=== PATIENT | female | born 1990 | race Caucasian/White ===

== ENCOUNTER 2019-08-12 14:54 | Inpatient (IN) ==
[2019-08-12] MEDS ORDERED: PEPCID IV ONE (15:30)
[2019-08-12] MEDS ORDERED: NS 1,000 ML IV ONE ×2 (15:30→17:24)
[2019-08-12] MEDS ORDERED: SODIUM CHLORIDE 0.9% INJ ONE (15:30)
[2019-08-12] MEDS ORDERED: ZOFRAN IV ONE (15:30)
[2019-08-12] MEDS ORDERED: MORPHINE IV ONE ×2 (15:30→17:25)
[2019-08-12 16:09] LABS: BASO# 0.06 X1000 (0.0-0.2); BASO% 0.9 % (0.0-0.8); EOS# 0.06 X1000 (0.0-0.7); EOS% 0.9 % (0.0-10.0); HEMOGLOBIN 12.2 g/dL (12.0-16.0); IMM GRAN# 0.04 X1000 (0.0-0.04); IMM GRAN% 0.6 % (0.0-0.5); LYMPH# 1.47 X1000 (1.2-3.4); LYMPH% 22.5 % (20.5-51.1); MCH 27.2 PG (27-31); MCV 82.6 FL (81-99); MONO# 0.79 X1000 (0.11-0.59); MONO% 12.1 % (1.7-9.3); MPV 9.8 FL (7.4-10.4); NEUT# 4.12 X1000 (1.4-6.5); PLT 392 X1000 (130-400); RBC 4.48 XMIL (4.2-5.4); RDW 14.9 % (11.5-14.5); WBC 6.54 X1000 (4.8-10.8)
[2019-08-12 16:10] LABS: INR 1.21; PROTIME 15.5 Seconds (11.0-16.0); PTT 26.8 Seconds (22.3-41.8)
[2019-08-12 16:29] LABS: AGAP 13; ALB/GLOB RATIO 0.9; ALBUMIN 2.8 g/dL (3.5-5.0); ALKALINE PHOSPHATASE 329 U/L (32-104); AMYLASE 37 U/L (20-200); BUN 5 mg/dL (8-22); CALCIUM 7.9 mg/dL (8.8-10.2); CHLORIDE 99 mmol/L (98-107); COSMO 263; CREATININE 0.4 mg/dL (0.5-0.9); ESTIMATED GFR > 60; GLUCOSE 96 mg/dL (70-104); GOT 574 U/L (10-30); LIPASE 36 U/L (13-60); MAGNESIUM 1.8 mg/dL (1.5-2.7); POTASSIUM 3.8 mmol/L (3.5-5.1); SODIUM 133 mmol/L (136-145); TCO2 21 mmol/L (25-35); TOTAL PROTEIN 5.9 g/dL (6.3-8.3)
[2019-08-12 16:40] LABS: GPT 1511 U/L (10-36)
[2019-08-12 17:28] LABS: URINE SOURCE CLEAN CATCH
[2019-08-12 17:42] LABS: UR EPITHELIAL CELLS <10 /HPF (<10); URINE BACTERIA NEGATIVE /HPF; URINE RBC TNTC /HPF (<10); URINE WBC <10 /HPF (<10)
[2019-08-12 17:45] LABS: BILIRUBIN URINE MODERATE (NEGATIVE); BLOOD URINE LARGE (NEGATIVE); COLOR YELLOW; GLUCOSE URINE NEGATIVE (NEGATIVE); KETONE URINE TRACE mg/dL (NEGATIVE); LEUKOCYTES URINE SMALL (NEGATIVE); NITRITE URINE NEGATIVE (NEGATIVE); PROTEIN URINE 30 mg/dL (NEGATIVE); SP GRAVITY URINE 1.019; TURBIDITY URINE TURBID (CLEAR); UROBILINOGEN URINE NORMAL (NORMAL)
[2019-08-12 17:54] LABS: UR AMPHETAMINES QUAL NONE DETECTED (NONE DETECT); UR BARBITUATES QUAL NONE DETECTED (NONE DETECT); UR BENZODIAZEPIN QUAL NONE DETECTED (NONE DETECT); UR CANNABINOIDS QUAL PRESUMPTIVE POSITIVE (NONE DETECT); UR COCAINE QUAL NONE DETECTED (NONE DETECT); UR METHADONE QUAL NONE DETECTED (NONE DETECT); UR OPIATES QUAL PRESUMPTIVE POSITIVE (NONE DETECT); UR OXYCODONE QUAL NONE DETECTED (NONE DETECT); UR PCP QUAL NONE DETECTED (NONE DETECT)
[2019-08-12] MEDS ORDERED: ROCEPHIN 1 GM in NS 50 ML IV ONE (17:55)
--- NOTE | 2019-08-12 18:00 | PROVIDER DOCUMENTATION ---
This chart was entered by Terrie Armas Scribe, acting as scribe for Ángel Thompson MD. HPI-Abdominal Pain/GI Problem - General Chief Complaint: Diarrhea Stated Complaint: PT STATES "HEPATITIS A" PASSING BLOOD Time Seen by Provider: 08/12/19 15:23 Source: patient, family Allergies/Adverse Reactions: Patient Allergies Allergy/AdvReac Type Severity Reaction Status Date / Time No Known Allergies Allergy Verified 09/10/18 13:17 Home Medications: Home Medication List Medication Instructions Recorded Confirmed Last Taken Type Permethrin [Elimite] 60 gm TP DAILY #1 cream..g. 03/09/14 Unknown Rx Promethazine [Phenergan] 25 mg PO Q6H PRN PRN #20 tablet 03/09/14 Unknown Rx Sulfamethoxazole/Trimethoprim 1 each PO BID #20 tablet 03/09/14 Unknown Rx [Bactrim Ds Tablet] Tramadol [Ultram] 50 mg PO Q6H PRN PRN #20 tablet 03/09/14 Unknown Rx - History of Present Illness-ABD Nature of Presenting Problems: 29 yowf presents to the ed with SO with c/o fatigue, jesus and bloody diarrhea, RUQ pain, nausea and dark urine. pt sts SO 2 weeks prior got dx with Hep A and now she is showing all the same sx. pt admits to past drug use but sts none now. SO at bedside sts he feels much better now. Abdominal Pain Onset Location: reports: RUQ Pain Radiation: reports: no radiation Quality of Pain: reports: cramping Severity in ED: reports: moderate Onset/Duration: reports: other (2 weeks) Timing: reports: intermittent, getting worse Activities at Onset: reports: light activity Exposure to sick contacts?: Yes (SO had recent dx of Hep A) Modifying Factors: improves with: nothing Associated Symptoms: reports: diarrhea (jesus and bloody stool), fatigue, genitourinary problems, malaise, nausea, weakness. denies: back/neck pain, chest pain, shortness of breath, vomiting Last BM: this afternoon Dark Stools Present?: reports: other (jesus and bloody) Rectal Bleeding: reports: bloody diarrhea # of Diarrhea Episodes: 3 Rectal Pain: reports: none # of Vomiting Episodes: 0 Emesis Description: reports: none Bruising or Bleeding Gums?: No Similar Symptoms Previously?: No Recently seen or treated by another doctor?: No Review of Systems - Adult - REVIEW OF SYSTEMS - ADULT Constitutional: reports: see HPI, fatique. denies: chills, fever Eyes: reports: see HPI, other (scleral icterus) Ears, Nose, Mouth & Throat: reports: no symptoms reported Cardiovascular: denies: chest pain, palpitations Respiratory: denies: cough, shortness of breath, wheezing Gastrointestinal: reports: see HPI, abdominal pain, diarrhea, nausea, rectal bleeding. denies: vomiting Genitourinary: reports: see HPI, other (dark urine) Musculoskeletal: denies: back pain, neck pain Integumentary: reports: no symptoms reported Neurological: denies: dizziness/vertigo, headache/migraines Psychiatric: reports: no symptoms reported Endocrine: reports: no symptoms reported Hematologic/Lymphatic: reports: no symptoms reported Allergic/Immunologic: reports: no symptoms reported All Other Systems: Reviewed and Negative Past History - Adult - PAST MEDICAL HISTORY-ADULT Review of Records: reports: Old Records Reviewed, Nursing Assessment Review, Medications Reviewed, Social history reviewed & non-contributory. Major Childhood Illnesses: reports: denies history Cardiovascular: reports: denies history Respiratory: reports: denies history Gastrointestinal: reports: denies history Obstetrical/Gynecological: reports: denies history Genitourinary: reports: denies history Musculoskeletal: reports: denies history Neurological: reports: denies history Psychiatric: reports: denies history Endocrine/Immune: reports: denies history Other Conditions: reports: denies history - PRIOR SURGERIES/PROCEDURES Surgical/Procedure History: reports: none - PRIOR HOSPITALIZATIONS Prior Hospitalizations: reports: none - IMMUNIZATION STATUS Childhood Immunizations: See Nurse Assessment Flu Vaccine: See Nurse Assessment - FAMILY HISTORY Family History: reviewed, not pertinent - SOCIAL HISTORY Smoking: cigarettes, greater than 1 pack/day Provider spent 3-5 mins advising pt. on dangers of tobacco.: Discussed manners to quit use, and f/u contacts for add'l counseling. Substance Use: none presently/history of abuse (meth) Alcohol Use Frequency: never Living Situation: family Physical Exam-General - PHYSICAL EXAM-ADULT Initial Vital Signs Reviewed: Yes - CONSTITUTIONAL General Appearance: alert, mild distress, thin - EYES Eyes: PERRL/EOMI, scleral icterus - HEAD, EARS, NOSE, MOUTH & THROAT HENMT: moist mucous membranes - NECK Neck: non-tender, full range of motion, supple, normal inspection - RESPIRATORY Respiratory: chest non-tender, no respiratory distress, rhonchi (bilateral), wheezing (bilateral) - CARDIOVASCULAR Cardiovascular: normal peripheral pulses, tachycardia (112) - CHEST (BREASTS) Chest/Breast: deferred - GASTROINTESTINAL (ABDOMEN) Abdominal Exam: soft, guarding, tenderness (RUQ) - GENITOURINARY Female Genitalia/Pelvic Exam: deferred Rectal Exam: deferred Hemoccult Exam: deferred - LYMPHATIC Lymphatic: no adenopathy - MUSCULOSKELETAL Back Exam: normal inspection, no CVA tenderness, no vertebral tenderness, scoliosis Extremity: normal range of motion, non-tender, normal inspection, normal capillary refill - SKIN Integumentary: normal color, normal turgor, warm/dry - NEUROLOGIC Neurologic: grossly normal - PSYCHIATRIC Psych/Mental Status: normal mood/affect, normal thought content, normal thought process, oriented x 3 Progress - PLAN OF CARE/RESULTS Progress/Plan/Lab Results: Vital Signs - 8 hr 08/12/19 15:01 Temperature 98 F Pulse Rate 112 H Respiratory Rate 16 Blood Pressure 98/61 O2 Sat by Pulse Oximetry 97 Result Diagrams: 08/12/19 15:50 08/12/19 15:50 - REASSESSMENT Reassessment #1 Time Reassessed: 17:19 (pt sts she feels better after pain meds and fluids ) Status: improving Reassessment Comment: dr thompson at bedside - XRAY 1 XRAY: Bilateral XRAY Study: Abdomen Impression: See EMR Report (large amount of stool seen read by dr thompson) - CONSULTS/PCP/HOSPITALIST Notification #1 *Consult/PCP/Hospitalist*: hospitalist dr benitez Time Discussed: 17:57 (spoke with wero) Consult Disposition: Admit Departure - Departure Date of Disposition Decision: 08/12/19 Time of Disposition Decision: 17:28 DIAGNOSIS: Acute hepatitis A virus infection, Dehydration syndrome, Tobacco use disorder, Acute hemorrhagic cystitis RUQ abdominal tenderness Qualifiers: Presence of rebound: absent Qualified Code(s): R10.811 - Right upper quadrant abdominal tenderness Disposition: ADMITTED INPATIENT 09 Certified Medical Emergency: Emergent Condition: Stable Referrals and Follow-Ups: None,PCP [Primary Care Provider] - Discharge Education: Steps to Quit Smoking, [id number] - Critical Care Note This patient required my direct & personal management of CC.: No Attestation - Physician/ THOMAS Attestation Patient care was provided by Advanced Practice Provider:: No The physician spent face to face time with patient:: Yes Advanced Practice Provider documentation review:: Supervising physician onsite and consulted in the evaluation and care of this patient. The physician did have a face to face encounter with the patient. This chart was documented by the indicated scribe, (Terrie Armas Scribe) an d accurately reflects the services I performed and decisions made by me, Ángel Thompson MD, as attested by the provider's signature.
--- NOTE | 2019-08-12 18:05 | Diag Imaging Result Doc PS360 ---
EXAM: FLAT/UPRIGHT ABD/1 VIEW CHEST - 08/12/2019 HISTORY: abd pain, vomiting TECHNIQUE: Supine and upright abdomen and one view chest COMPARISON: 03/09/2014 chest two views FINDINGS: There is a moderate amount retained fecal debris in the colon and rectum suggesting constipation. Bowel gas pattern otherwise appears nonspecific. There are a few air-fluid levels on the upright view, there is no substantial gaseous bowel distention identified. There is no free air identified. Upright chest shows normal heart size. Lungs appear clear. No pleural effusion or pneumothorax identified. Mild thoracic scoliosis noted. IMPRESSION: Evidence of constipation. Nonspecific bowel gas pattern otherwise. No evidence of acute cardiopulmonary disease. Electronically signed by Jamar Betancourt 08/12/2019 6:02 PM
[2019-08-12] MEDS ORDERED: SODIUM CHLORIDE 0.9% INJ SCH (18:45)
--- NOTE | 2019-08-12 19:49 | Diag Imaging Result Doc PS360 ---
EXAM: US GB < RUQ (LIMITED) - 08/12/2019 HISTORY: elevated liver enzymes TECHNIQUE: Ultrasound gallbladder COMPARISON: None. FINDINGS: The gallbladder coleman are thickened up to approximately 1.5 cm. There are no discrete gallstones identified. There is a small amount of perihepatic free fluid. The technologist reports positive sonographic Sanders's sign. The common bile duct is normal caliber at 3 mm. Visualized portions of the pancreas are unremarkable. There are no discrete abnormalities of the liver identified. Doppler image shows hepatopedal flow in the portal vein. The right kidney is unremarkable. IMPRESSION: Substantially thickened gallbladder coleman. The possibility of cholecystitis or gallbladder malignancy cannot be excluded. No discrete gallstones. Normal caliber common bile duct at 3 mm. Electronically signed by Jamar Betancourt 08/12/2019 7:47 PM
[2019-08-12] MEDS: PROTONIX IV SCH (20:03)
[2019-08-13 01:27] LABS: HEMATOCRIT 34.2 % (37.0-47.0); HEMOGLOBIN 11.1 g/dL (12.0-16.0)
[2019-08-13] MEDS: NS 1,000 ML IV SCH ×5 (04:45→20:26)
[2019-08-13] MEDS: ZOFRAN IV PRN ×2 (04:46→13:13)
[2019-08-13] MEDS: MORPHINE IV PRN ×3 (04:46→20:25)
[2019-08-13 06:12] LABS: BASO# 0.03 X1000 (0.0-0.2); BASO% 0.6 % (0.0-0.8); EOS# 0.06 X1000 (0.0-0.7); EOS% 1.2 % (0.0-10.0); IMM GRAN# 0.03 X1000 (0.0-0.04); IMM GRAN% 0.6 % (0.0-0.5); INR 1.32; LYMPH% 25.4 % (20.5-51.1); MCHC 32.4 g/dL (33-37); MCV 83.3 FL (81-99); MONO# 0.59 X1000 (0.11-0.59); MONO% 11.5 % (1.7-9.3); NEUT# 3.11 X1000 (1.4-6.5); NEUT% 60.7 % (42.2-75.2); PLT 394 X1000 (130-400); PROTIME 16.6 Seconds (11.0-16.0); RBC 4.08 XMIL (4.2-5.4); WBC 5.12 X1000 (4.8-10.8)
[2019-08-13 06:31] LABS: AGAP 11; ALB/GLOB RATIO 0.9; ALBUMIN 2.5 g/dL (3.5-5.0); ALKALINE PHOSPHATASE 292 U/L (32-104); BUN 6 mg/dL (8-22); CALCIUM 7.4 mg/dL (8.8-10.2); CHLORIDE 101 mmol/L (98-107); COSMO 261; CREATININE 0.5 mg/dL (0.5-0.9); ESTIMATED GFR > 60; GLUCOSE 85 mg/dL (70-104); GOT 498 U/L (10-30); POTASSIUM 3.6 mmol/L (3.5-5.1); SODIUM 132 mmol/L (136-145); TCO2 20 mmol/L (25-35); TOTAL BILIRUBIN 4.58 mg/dL (0.20-1.00); TOTAL PROTEIN 5.3 g/dL (6.3-8.3)
[2019-08-13 06:45] LABS: GPT 1111 U/L (10-36)
--- NOTE | 2019-08-13 06:56 | HISTORY AND PHYSICAL ---
CHIEF COMPLAINT: Nausea, vomiting, diarrhea, and bloody diarrhea. HISTORY OF PRESENT ILLNESS: This is a 29-year-old female, she really has no medical problems. She was passing blood per rectum. She is in a relationship where her boyfriend apparently had hepatitis about 2 weeks ago. She came in, she is jaundiced. She has had nausea and vomiting. There has not been a description that she has passed blood. She has not had a Hemoccult here, I guess, but in any case it looks like she has acute hepatitis, most likely A since her boyfriend had it recently. Initially, it was kind of a URI type syndrome and then it had further progression and now she has had nausea, vomiting, bloody diarrhea for the last several days. Jaundice has been in the last 24 hours. Her workup in the ER showed an AST and ALT of 574 and 1511, low albumin. INR is not too bad. Hemoglobin and hematocrit is stable. She will be admitted for treatment of her acute hepatitis, presumably A. PAST MEDICAL HISTORY: Denies. PAST SURGICAL HISTORY: Denies. FAMILY HISTORY: Reviewed and noncontributory. SOCIAL HISTORY: She does smoke, she has done that for about 16 years, about half a pack a day. No breathing problems. Denies alcohol. Denies drugs. ALLERGIES: No known drug allergies. MEDICATIONS: No long-term medications. REVIEW OF SYSTEMS: Otherwise negative times a 10 point review of system. PHYSICAL EXAMINATION: VITALS: Blood pressure 98/61, heart rate of 112, respiratory rate of 16, temperature 98 degrees. GENERAL: A well-developed female, who appears in no distress, but is uncomfortable. HEENT: Sclerae are jaundiced, icteric, but eyes are equal, round, and reactive to light. Ear, nose and throat examination, she had moist mucous membranes. NECK: Supple. CARDIOVASCULAR: Regular rate and rhythm. No murmurs, gallops, or rubs. PULMONARY: Bilateral breath sounds. Clear to auscultation. GI: Soft, nontender, nondistended. Bowel sounds are positive. She had some tenderness in her right upper quadrant. NEUROLOGIC: Nonfocal. LABORATORY: She had a white count of 6, hemoglobin and hematocrit 12 and 37. AST and ALT of 574, with T bilirubin of 4.5, 4 of which is direct, consistent with an intrahepatic cause, almost consistent with an acute hepatitis. PROBLEM: 1. Acute hepatitis, presumably hepatitis A. We will continue to monitor, hydration, supportive care. I will get a GI consult just because of the amount of elevation. We will get a right upper quadrant ultrasound. We will get a Tylenol level. She has been using Tylenol, maybe 500 or 1 g a day. Denies alcohol use. In any case, the patient is ready and we will continue to monitor. Hepatitis panel has already been assayed. 2. Lower gastrointestinal bleed. This could simply be related to the hepatitis itself and mild coagulopathy. We will monitor her hemoglobin and hematocrit, start Protonix, and follow accordingly. If this persists, she may need endoscopy. That will be at the discretion of GI, who has been consulted. DISPOSITION: Home when liver enzymes are better and she is out of the acute phase. cc: Adolph Cuello MD
[2019-08-13 13:56] LABS: HEMATOCRIT 35.3 % (37.0-47.0); HEMOGLOBIN 11.5 g/dL (12.0-16.0)
[2019-08-13 14:54] LABS: HEPATITIS PROFILE ACUTE SEE COMMENTS
[2019-08-13] MEDS ORDERED: PROTONIX IV SCH (18:45)
[2019-08-13] MEDS ORDERED: NS 1,000 ML IV ONE (18:45)
[2019-08-13] MEDS: SODIUM CHLORIDE 0.9% INJ SCH (20:24)
--- NOTE | 2019-08-13 22:20 | PROGRESS NOTE ---
DATE: 08/13/2019 SUBJECTIVE: The patient has no major complaints. She does not feel any better. Still nausea, vomiting, still bloody bowel movements. OBJECTIVE: Blood pressure is 86/52, heart rate of 99, respiratory rate 18, temperature 98 degrees.Cardiovascular: Regular rate and rhythm. Pulmonary: Bilateral breath sounds. Clear to auscultation. Gastrointestinal: Soft, nontender, nondistended. Bowel sounds are positive. LABORATORY DATA: Her white count is 5, hemoglobin and hematocrit 11 and 35, platelets 394,000. INR is 1.32. Her T-bilirubin is still high 4.58, AST is 498, ALT is 1111, albumin of 2.5. PROBLEM LIST: 1. Acute hepatitis. It looks like she has hepatitis A and C, and she has acute hepatitis A, but she may have concurrent hepatitis C. In any case, we will continue hydration and see how she does. 2. Bloody diarrhea. It may just be related to the hepatitis. We will continue to follow. 3. History of polysubstance abuse. She does have a history of IV drug use, which makes the hepatitis C question a possibility, so she may need testing from that standpoint. We will continue to monitor and she will need follow up. cc: Adolph Cuello MD
[2019-08-13] MEDS: PROTONIX IV SCH (22:35)
[2019-08-14] MEDS: NS 1,000 ML IV SCH ×3 (03:17→17:07)
--- NOTE | 2019-08-14 06:09 | GASTROENTEROLOGY CONSULTATION ---
DATE: 08/13/2019 CONSULTING PHYSICIAN: Dr. Cuello REASON FOR CONSULTATION: Hepatitis. HISTORY: This is 29-year-old white female with no history of major medical problems. She is an IV drug abuser. She tells me she has been clean for the past 2 weeks or so. She also informs me that her boyfriend was recently diagnosed and treated for acute hepatitis A. She herself has been sick for the past couple of weeks. It all started with generalized body ache and respiratory symptoms. She then started having some abdominal discomfort, nausea, and vomiting. She also had multiple loose bowel movements yesterday. She had some bright red blood on the wipes. With these complaints, she came to the emergency room where she was evaluated, and was found to have significantly elevated transaminases. She was admitted for further evaluation and treatment. PAST MEDICAL HISTORY: Nothing significant. PAST SURGICAL HISTORY: None. MEDICATIONS: She tells me she has taken a few Tylenol's but she does not remember how many. ALLERGIES: No drug allergies. SOCIAL HISTORY: She is single. Currently, she has gotten back with her boyfriend which she has been with him off and on. FAMILY HISTORY: Noncontributory. REVIEW OF SYSTEMS: As per HPI as above. PHYSICAL EXAMINATION: General: A very pleasant white female. She is resting in bed. She is conscious, alert, and appears to be in no distress. Vital Signs: Temperature 99.4, pulse 103 per minute, respirations 14, and blood pressure 110/63. HEENT: Head is atraumatic, normocephalic. Eyes: Conjunctivae is normal. Sclerae mildly icteric. Nares are patent. No discharge noted. Mouth: Buccal mucosa is moist. Throat is normal. Neck: Neck is supple. No lymphadenopathy or thyromegaly. Chest: Bilaterally symmetrical. It is moving with respirations. Breath sounds audible bilaterally. No rhonchi or crepitations could be heard. Heart: Audible. No murmur could be appreciated. Abdomen: Flat and soft, mildly tender in right upper quadrant area. No rebound tenderness. No guarding noted. Bowel sounds are audible. Extremities: No pedal edema, cyanosis, or clubbing was noted. THERAPEUTIC DIETITIAN: Grossly intact. No sensory or motor deficit. LABORATORY: Reviewed which showed WBC of 5.12, hemoglobin 11.5, hematocrit 35.3, MCV 83.3, and platelets were 394,000. PT 16.6. INR 1.22. Sodium 132, potassium 3.6, chloride 101, bicarb 20, BUN is 6, and creatinine 0.5. AST was 498 which on admission was 574. ALT was 1111 which on admission was 1511. Alkaline phosphatase 292, total bilirubin was 4.58. Albumin 2.5. Total protein was 5.3. Urinalysis positive for some ketones in blood, and small amount of leukocytes noted possibly UTI. IMPRESSION: Acute hepatitis most likely viral. She has history of IV drug abuse, and her boyfriend had some sort of hepatitis most likely hepatitis A and maybe B, but she is concerned that she may have underlying hepatitis C. During my history and physical, we are still waiting for her hepatitis profile to be back. At this point, I would continue current hemodynamics resuscitation, hydration, and recheck labs to replace electrolytes. Replenish electrolytes, and keep her stable. Follow up I Os. Also, I need to repeat her labs tomorrow with the transaminases. More importantly, we need to follow her albumin and PT/INR to confirm that she is not going towards acute liver failure or fulminant hepatitis. Depending on her progress, further plans will be made. She was advised to abstain from IV drug abuse as well as alcohol. cc: Missael Agustin MD [facility]
[2019-08-14 07:39] LABS: BASO# 0.09 X1000 (0.0-0.2); BASO% 1.9 % (0.0-0.8); EOS# 0.03 X1000 (0.0-0.7); EOS% 0.6 % (0.0-10.0); HEMATOCRIT 33.2 % (37.0-47.0); HEMOGLOBIN 10.7 g/dL (12.0-16.0); IMM GRAN# 0.04 X1000 (0.0-0.04); IMM GRAN% 0.9 % (0.0-0.5); LYMPH# 1.37 X1000 (1.2-3.4); LYMPH% 29.3 % (20.5-51.1); MCH 26.8 PG (27-31); MCHC 32.2 g/dL (33-37); MCV 83.2 FL (81-99); MONO# 0.74 X1000 (0.11-0.59); MONO% 15.8 % (1.7-9.3); MPV 9.4 FL (7.4-10.4); NEUT# 2.41 X1000 (1.4-6.5); NEUT% 51.5 % (42.2-75.2); PLT 381 X1000 (130-400); RBC 3.99 XMIL (4.2-5.4); RDW 15.3 % (11.5-14.5); WBC 4.68 X1000 (4.8-10.8)
[2019-08-14] MEDS: MORPHINE IV PRN ×3 (07:52→21:08)
[2019-08-14 07:53] LABS: AGAP 9; ALBUMIN 2.3 g/dL (3.5-5.0); ALKALINE PHOSPHATASE 298 U/L (32-104); BUN 3 mg/dL (8-22); CALCIUM 7.3 mg/dL (8.8-10.2); CHLORIDE 103 mmol/L (98-107); COSMO 265; CREATININE 0.4 mg/dL (0.5-0.9); ESTIMATED GFR > 60; GLUCOSE 129 mg/dL (70-104); GOT 234 U/L (10-30); POTASSIUM 3.3 mmol/L (3.5-5.1); SODIUM 133 mmol/L (136-145); TCO2 21 mmol/L (25-35); TOTAL BILIRUBIN 4.95 mg/dL (0.20-1.00); TOTAL PROTEIN 4.7 g/dL (6.3-8.3)
[2019-08-14 08:10] LABS: GPT 743 U/L (10-36)
[2019-08-14 08:18] LABS: BANDS 2 % (0-1); LYMPHS 24 % (21-51); MONO 8 % (1-9); SEGS 60 % (42-75)
[2019-08-14] MEDS: ZOFRAN IV PRN (16:39)
[2019-08-14] MEDS: SODIUM CHLORIDE 0.9% INJ SCH (20:10)
[2019-08-14] MEDS: PROTONIX IV SCH (20:10)
--- NOTE | 2019-08-14 23:18 | GASTROENTEROLOGY PROGRESS NOTE ---
DATE: 08/14/2019 SUBJECTIVE: Patient states she is feeling a little better. No reported nausea or vomiting. No reported rectal bleeding. She had a documented liquid brown stool today. OBJECTIVE: Vital Signs: Temperature 99.1 degrees, pulse 99, respirations 18, blood pressure 105/69. General: Patient is awake, alert in no acute distress. Respiratory: Lung sounds clear. Abdomen: Soft. Some tenderness with palpation. Otherwise, positive bowel sounds. LABORATORY DATA: Hematology: WBC 4.68, hemoglobin 10.7, hematocrit 33.2, MCV 83.2, platelets 381,000. Coagulation on 08/13/2019: Protime 16.6, INR 1.32. Chemistry: Sodium 133, potassium 3.3, chloride 103, CO2 21, BUN 3, creatinine 0.4, glucose 129, total bilirubin 4.95, direct bilirubin 4.50, AST 234, ALT 743, alkaline phosphatase 298. Hepatitis profile was reactive for hepatitis C and a hepatitis A viral antibody IgM. ASSESSMENT AND PLAN: 1. Acute hepatitis. Patient's liver function tests have improved some. Continue symptomatic treatment and supportive care. 2. Hepatitis C. HCV viral load pending. We will get hepatitis C genotype. 3. Rectal bleeding has resolved today. She continues to have some diarrhea. 4. Polysubstance abuse. Patient has been counseled on alcohol cessation and drug use cessation. We will continue to follow during her hospital course. Repeat labs tomorrow. Continue current medications. Once she is discharged, recommend she follow up with us in the office about plans for hepatitis C treatment once she has been clean from IV drug use for an appropriate amount of time. She will require patient assistance. That can be set up as an outpatient. I have discussed this case with Dr. Agustin. We will continue to follow during our hospital course and follow up with her in the office after discharge. Patient voices understanding of this plan. Dictated by JULIO CESAR Villeda for Missael Agustin MD cc: JULIO CESAR Sarkar MD
[2019-08-15] MEDS: NS 1,000 ML IV SCH ×3 (00:58→18:39)
[2019-08-15] MEDS: MORPHINE IV PRN ×5 (04:27→23:30)
[2019-08-15 06:52] LABS: BASO# 0.16 X1000 (0.0-0.2); BASO% 2.8 % (0.0-0.8); EOS# 0.06 X1000 (0.0-0.7); HEMATOCRIT 31.1 % (37.0-47.0); HEMOGLOBIN 10.3 g/dL (12.0-16.0); IMM GRAN# 0.05 X1000 (0.0-0.04); IMM GRAN% 0.9 % (0.0-0.5); LYMPH# 2.43 X1000 (1.2-3.4); LYMPH% 42.4 % (20.5-51.1); MCH 27.3 PG (27-31); MCHC 33.1 g/dL (33-37); MCV 82.5 FL (81-99); MONO# 0.73 X1000 (0.11-0.59); MONO% 12.7 % (1.7-9.3); NEUT% 40.2 % (42.2-75.2); PLT 394 X1000 (130-400); RBC 3.77 XMIL (4.2-5.4); RDW 15.5 % (11.5-14.5); WBC 5.73 X1000 (4.8-10.8)
[2019-08-15 07:06] LABS: AGAP 11; ALB/GLOB RATIO 0.8; ALBUMIN 2.2 g/dL (3.5-5.0); ALKALINE PHOSPHATASE 296 U/L (32-104); BUN 2 mg/dL (8-22); CALCIUM 7.6 mg/dL (8.8-10.2); CHLORIDE 103 mmol/L (98-107); COSMO 268; CREATININE 0.4 mg/dL (0.5-0.9); ESTIMATED GFR > 60; GLUCOSE 94 mg/dL (70-104); GOT 117 U/L (10-30); GPT 523 U/L (10-36); POTASSIUM 3.5 mmol/L (3.5-5.1); SODIUM 136 mmol/L (136-145); TCO2 22 mmol/L (25-35); TOTAL BILIRUBIN 4.82 mg/dL (0.20-1.00); TOTAL PROTEIN 4.9 g/dL (6.3-8.3)
[2019-08-15 08:07] LABS: BANDS 2 % (0-1); HYPOCHROM 1+; LYMPHS 36 % (21-51); MONO 10 % (1-9); SEGS 44 % (42-75)
[2019-08-15 08:09] LABS: INR 1.26
[2019-08-15] MEDS ORDERED: MOTRIN PO PRN (10:05)
[2019-08-15] MEDS: ZOFRAN IV PRN ×4 (10:10→23:30)
--- NOTE | 2019-08-15 10:33 | Diag Imaging Result Doc PS360 ---
EXAM: CHEST-2 VIEWS INDICATION: hypoxia TECHNIQUE: 2 views COMPARISON: 08/12/2019 FINDINGS: There are vague linear densities at the right lower lung zone and, to a lesser degree, at the left lower lung zone suggesting mild subsegmental atelectasis. There is mild blunting of the left costophrenic angle suggesting a possible trace effusion. There is no evidence of pneumothorax. The cardiomediastinal silhouette and central vasculature are grossly unremarkable. IMPRESSION: Linear densities at the lower lung zone suggesting subsegmental atelectasis and a possible trace left effusion. Electronically signed by Don Rodriguez 08/15/2019 10:30 AM
[2019-08-15 10:55] LABS: URINE SOURCE CLEAN CATCH
[2019-08-15 11:07] LABS: BILIRUBIN URINE MODERATE (NEGATIVE); BLOOD URINE SMALL (NEGATIVE); COLOR YELLOW; GLUCOSE URINE NEGATIVE (NEGATIVE); KETONE URINE NEGATIVE (NEGATIVE); LEUKOCYTES URINE NEGATIVE (NEGATIVE); NITRITE URINE NEGATIVE (NEGATIVE); PH URINE 6.5; PROTEIN URINE NEGATIVE (NEGATIVE); SP GRAVITY URINE 1.013; TURBIDITY URINE HAZY (CLEAR); UROBILINOGEN URINE NORMAL (NORMAL)
[2019-08-15 11:16] LABS: UR EPITHELIAL CELLS <10 /HPF (<10); URINE BACTERIA NEGATIVE /HPF; URINE RBC <10 /HPF (<10); URINE WBC <10 /HPF (<10)
[2019-08-15 11:41] LABS: URINE CRYSTALS NONE SEEN
--- NOTE | 2019-08-15 21:40 | GASTROENTEROLOGY PROGRESS NOTE ---
DATE: 08/15/2019 SUBJECTIVE: The patient is resting comfortably. She has been feeling better now. She denies any GI symptoms. She has been able to tolerate her diet well. She denies nausea or vomiting. She has not had any diarrhea. OBJECTIVE: Vitals: Temperature is 99.3 degrees, pulse 97 per minute. Breathing at a rate of 18, blood pressure 107/65. The abdomen is full, soft, nontender. Bowel sounds are audible. No pedal edema noted. LABORATORIES: Reviewed which showed her AST down to 117, ALT 523. Bilirubin is 4.82. IMPRESSION: Acute hepatitis A with underlying chronic hepatitis C. Patient is improving well at this point. No new suggestions. Advised her to continue low fat diet and hydrate herself well. From a GI perspective, she can be discharged as she does not show any signs of liver failure now. Her INR has improved and the albumin level is holding. Recommended her to follow up with me in the office. She will be treated with a direct antiviral for her hepatitis C. I answered all the pertinent questions. cc: Missael Agustin MD MTDD
--- NOTE | 2019-08-15 23:46 | PROGRESS NOTE ---
DATE: 08/15/2019 SUBJECTIVE: Patient has no major complaints. OBJECTIVE: Vital signs: Blood pressure is 97/63, heart rate 96, respiratory rate 18, temperature 100.6 degrees. Cardiovascular: Regular rate and rhythm. Pulmonary: Bilateral breath sounds. Clear to auscultation. Gastrointestinal: Soft, nontender, nondistended. Bowel sounds are positive. LABS: White count is 5, hemoglobin and hematocrit 10 and 31, platelets 394,000. Basic was normal. AST and ALT are down to 111 and 523. PROBLEM LIST: 1. Acute hepatitis with possible chronic hepatitis C. We will continue supportive care. She seems to be doing okay. 2. Fevers of unknown origin. She is starting to get little atelectasis, so we will work on ambulation and incentive spirometry. 3. Bloody diarrhea. Her hemoglobin and hematocrit has been stable. May do some stool studies just to kind of see if there is anything that could be there concurrently. This is most likely related to the hepatitis A. DISPOSITION: I think once her liver enzymes are improved and her fevers have abated, then she should be able to go home. Hopefully, that will be in the next 24 hours. cc: Adolph Cuello MD
[2019-08-16] MEDS: NS 1,000 ML IV SCH ×2 (05:31→13:37)
[2019-08-16] MEDS: PRILOSEC PO SCH ×2 (05:31→06:46)
[2019-08-16 07:44] LABS: BASO# 0.09 X1000 (0.0-0.2); BASO% 1.7 % (0.0-0.8); EOS# 0.04 X1000 (0.0-0.7); EOS% 0.7 % (0.0-10.0); HEMATOCRIT 32.7 % (37.0-47.0); HEMOGLOBIN 10.6 g/dL (12.0-16.0); IMM GRAN# 0.04 X1000 (0.0-0.04); IMM GRAN% 0.7 % (0.0-0.5); LYMPH% 44.6 % (20.5-51.1); MCH 26.6 PG (27-31); MCHC 32.4 g/dL (33-37); MCV 82.2 FL (81-99); MONO% 11.2 % (1.7-9.3); NEUT# 2.21 X1000 (1.4-6.5); NEUT% 41.1 % (42.2-75.2); PLT 365 X1000 (130-400); RBC 3.98 XMIL (4.2-5.4); RDW 15.9 % (11.5-14.5); WBC 5.38 X1000 (4.8-10.8)
[2019-08-16 07:55] LABS: AGAP 9; ALB/GLOB RATIO 0.9; ALBUMIN 2.5 g/dL (3.5-5.0); ALKALINE PHOSPHATASE 297 U/L (32-104); BUN 4 mg/dL (8-22); CALCIUM 7.8 mg/dL (8.8-10.2); CHLORIDE 105 mmol/L (98-107); COSMO 273; CREATININE 0.4 mg/dL (0.5-0.9); ESTIMATED GFR > 60; GLUCOSE 112 mg/dL (70-104); GOT 80 U/L (10-30); GPT 403 U/L (10-36); POTASSIUM 3.5 mmol/L (3.5-5.1); SODIUM 138 mmol/L (136-145); TCO2 24 mmol/L (25-35); TOTAL BILIRUBIN 5.12 mg/dL (0.20-1.00); TOTAL PROTEIN 5.3 g/dL (6.3-8.3)
[2019-08-16 11:15] VITALS: BP 103/63
[2019-08-16] MEDS: MORPHINE IV PRN (13:36)
[2019-08-16] MEDS: ZOFRAN IV PRN (13:36)
--- NOTE | 2019-08-16 21:43 | GASTROENTEROLOGY PROGRESS NOTE ---
DATE: 08/16/2019 SUBJECTIVE: Patient states she is feeling some better. She still has some loose stools. OBJECTIVE: Vital Signs: Temperature 98.1 degrees, pulse 97, respirations 18, blood pressure 103/63. General: Patient is awake, alert, no acute distress. LABORATORY: Hematology. WBC 5.38, hemoglobin 10.6, hematocrit 32.7, MCV 82.2, platelets 365,000. Chemistry. Sodium 138, potassium 3.5, chloride 105, CO2 24, BUN 4, creatinine 0.4, glucose 112, total bilirubin 5.12, AST 80, ALT 403, alkaline phosphatase 297. ASSESSMENT AND PLAN: 1. Acute hepatitis A and chronic hepatitis C. Continue current management and supportive care. I believe she may have discharge orders for today. 2. Bloody diarrhea is improving. No more rectal bleeding but patient is still having some soft stools. Stool for Clostridium difficile was negative. Continue symptomatic treatment, supportive care. I believe patient has discharge orders. Recommend she follow a bland diet, drink plenty of fluids and rest. Recommend she follow up with us in the office after discharge. I have given her contact information to call and make an appointment. Further plan to be made according to her progress. I have discussed this case with Dr. Agustin. Dictated by JULIO CESAR Villeda for Missael Agustin MD cc: JULIO CESAR Sarkar MD
--- NOTE | 2019-08-16 22:23 | DISCHARGE SUMMARY ---
ADMISSION DATE: 08/12/2019 DISCHARGE DATE: 08/16/2019 PRIMARY CARE PHYSICIAN: None. ADMISSION DIAGNOSES: 1. Acute hepatitis, presumably hepatitis A. 2. A lower gastrointestinal bleed that could simply be related to the hepatitis itself or a mild coagulopathy. DISCHARGE DIAGNOSES: 1. Acute hepatitis with possible chronic hepatitis C, improved. 2. Fevers of unknown origin with no fevers in the last 24 hours. 3. Bloody diarrhea, improved. SUMMARY OF FINDINGS: This is a 29-year-old female who has been passing blood in her rectum. She is in a relationship with her boyfriend apparently that had hepatitis about 2 weeks ago. She came in because she was becoming jaundiced, nausea, vomiting and passing blood through her stool, appeared that she had a acute hepatitis A most likely A since her boyfriend recently had it. We monitored her liver enzymes. We did a Gastroenterology consultation. Abdomen ultrasound showed substantially thickened gallbladder co[place], the possibility of cholecystitis or gallbladder malignancy could not be excluded. GI felt she had an acute hepatitis A with an underlying chronic hepatitis C that she was improving and could continue her low-fat diet, keep herself hydrated. Did not show any signs of liver failure at this point and it was recommended that she follow up with GI at discharge so we will discharge her home today. DISCHARGE MEDICATIONS: Will include Phenergan 25 mg p.o. q.6 hours p.r.n. FOLLOWUP: She will follow up with Dr. Agustin. Call their office for an appointment TIME SPENT: 35 minutes. Dictated by JULIO CESAR Smith for Adolph Cuello MD cc: MD Adolph Adhikari MD
--- NOTE | 2019-08-17 11:23 | PROGRESS NOTE ---
DATE: 08/16/2019 SUBJECTIVE: The patient is doing better she is still having some nausea but she is not throwing up. Diarrhea is improved. She has not had any further fevers last 24 hours. Her AST and ALT continue to decline. She is down to 80 on the AST and still 403 on the ALT, but she was 1511 when she came in and 574. Her T-bilirubin is still high at 5. DISPOSITION: She was felt stable for discharge. I did discuss the case briefly with Dr. Agustin's nurse practitioner. Told to avoid alcohol, Tylenol. We gave her some Phenergan p.r.n. Will need to follow up with Dr. Sampson to look over her liver enzymes and reassess her hepatic function. This is a [id number] encounter note with Julia King. cc: Adolph Cuello MD
[2019-08-17 12:04] LABS: HCV BY PCR SEE COMMENTS
[2019-08-18 20:47] LABS: HEPATITIS C GENOTYPE SEE COMMENTS
== END 2019-08-16 16:16 | disposition home or self-care (01) | DRG 443 ==
LOC: ED 14:54 → EDIPHOLD 19:30 → 4N 08-13 08:23
PROVIDERS: ATTEND Internal Medicine